=== PATIENT | female | born 1935 | race Caucasian/White ===

== ENCOUNTER 2022-01-31 06:31 | Inpatient (IN) | payer OTHER, MEDICARE ==
[2022-01-26 12:08] LABS: BASOPHILS % (AUTO) 0.1 % (0.0-2.0); EOSINOPHILS # (AUTO) 0.1 K/uL (0.0-0.4); EOSINOPHILS % (AUTO) 1.2 % (0.0-4.0); HEMOGLOBIN 13.5 g/dL (12.0-16.0); LYMPHOCYTES # (AUTO) 1.5 K/uL (1.0-5.5); LYMPHOCYTES % (AUTO) 19.7 % (20.5-51.5); MEAN CORPUSCULAR HEMOGLOBIN 31 pg (27-31); MEAN CORPUSCULAR HGB CONC 33 % (32-36); MEAN CORPUSCULAR VOLUME 94 fL (79.0-98.0); MONOCYTES # (AUTO) 0.7 K/uL (0.0-1.0); MONOCYTES % (AUTO) 9.4 % (1.7-9.3); NEUTROPHILS # (AUTO) 5.2 K/uL (1.8-7.7); NEUTROPHILS % (AUTO) 69.6 % (40.0-70.0); PLATELET COUNT (AUTO) 231 K/uL (130-430); RED BLOOD CELL COUNT(AUTO) 4.38 MIL/uL (4.2-6.2); RED CELL DISTRIBUTION WIDTH 13.1 % (9.0-15.0); WHITE BLOOD COUNT (AUTO) 7.4 K/uL (4.8-10.8)
[2022-01-26 12:28] LABS: ANION GAP 4 (5-15); CHLORIDE 104 mmol/L (98-107); CREATININE 1.05 mg/dL (0.55-1.30); GLUCOSE 99 mg/dL (70-99); POTASSIUM 5.3 mmol/L (3.5-5.1); UREA NITROGEN, BLOOD 26 mg/dL (8-21)
[2022-01-26 12:34] LABS: PROTHROMBIN TIME 9.7 SECS (9.5-12.5)
[2022-01-26 12:45] LABS: BILIRUBIN,URINE NEGATIVE (NEGATIVE); BLOOD, URINE NEGATIVE (NEGATIVE); CLARITY/URINE CLEAR (CLEAR); COLOR,URINE YELLOW (YELLOW); GLUCOSE,URINE NEGATIVE (NEGATIVE); KETONES,URINE NEGATIVE (NEGATIVE); LEUKOCYTE ESTERASE ,URINE 1+ (NEGATIVE); NITRITE, URINE NEGATIVE (NEGATIVE); PROTEIN URINE NEGATIVE (NEGATIVE); UROBILINOGEN,URINE 0.2 (0.2-1.0)
[2022-01-26 13:41] LABS: BACTERIA,URINE RARE /HPF (None Seen); MUCUS,URINE 1+ /LPF (None Seen); RBC,URINE 0-3 /HPF (0-3); WBC,URINE 0-3 /HPF (0-3)
[~2022-01-31] VITALS: Ht 167.6 cm; Wt 67.1 kg
[2022-02-06] MEDS ORDERED: GABAPENTIN 300 MG CAPSULE PO ONE (08:15)
[2022-02-06] MEDS ORDERED: CEFAZOLIN SODIUM IV ONE (08:15)
[2022-02-06] MEDS ORDERED: LIDOCAINE 1% 10 MG/ML, 20 ML MDV ID ONE (08:15)
[2022-02-06] MEDS ORDERED: NS IV ONE (08:15)
[2022-02-06] MEDS ORDERED: ACETAMINOPHEN 500 MG TABLET PO ONE (10:45)
[2022-02-06] MEDS ORDERED: oxyCODONE HCL 10 MG TAB.ER.12H PO ONE (11:00)
[2022-02-06] MEDS ORDERED: CELECOXIB 200 MG CAPSULE PO ONE (11:00)
[2022-02-07] MEDS ORDERED: CELECOXIB 200 MG CAPSULE PO ONE ×2 (06:30→11:00)
[2022-02-07] MEDS ORDERED: ACETAMINOPHEN 500 MG TABLET PO ONE ×2 (06:30→10:45)
[2022-02-07] MEDS ORDERED: CELECOXIB 200 MG CAPSULE ONE (07:14)
[2022-02-07] MEDS ORDERED: ACETAMINOPHEN 500 MG TABLET ONE (07:14)
[2022-02-07] MEDS ORDERED: GABAPENTIN 300 MG CAPSULE ONE (07:15)
[2022-02-07] MEDS ORDERED: HYDROmorphone 2 MG/ML VIAL IVP ONE (07:50)
[2022-02-07] MEDS ORDERED: LR 1,000 ML IV.SOLN IV ONE (07:50)
[2022-02-07] MEDS ORDERED: BUPIVACAINE /EPINEPHRINE/PF 0.25% 30 ML VIAL INJ ONE (07:50)
[2022-02-07] MEDS ORDERED: ePHEDrine sulfate 50 MG/ML VIAL IVP ONE (07:50)
[2022-02-07] MEDS ORDERED: DEXAMETHASONE SOD PHOSPHATE 4 MG/ML VIAL IVP ONE (07:50)
[2022-02-07] MEDS ORDERED: SEVOFLURANE 15 MIN GAS INH ONE (07:50)
[2022-02-07] MEDS ORDERED: WATER FOR IRRIGATION,STERILE 1,000 ML IRRIG.SOLN IR ONE (07:50)
[2022-02-07] MEDS ORDERED: NS 1000 ML IV.SOLN IV ONE (07:50)
[2022-02-07] MEDS ORDERED: METOCLOPRAMIDE HCL 10 MG/2 ML VIAL IVP ONE (07:50)
[2022-02-07] MEDS ORDERED: GLYCOPYRROLATE 0.2 MG/ML VIAL IJ ONE (07:50)
[2022-02-07] MEDS ORDERED: ONDANSETRON HCL 4 MG/2 ML VIAL IVP ONE (07:50)
[2022-02-07] MEDS ORDERED: NEOSTIGMINE METHYLSULFATE 1 MG/ML, 10 ML VIAL IVP ONE (07:50)
[2022-02-07] MEDS ORDERED: TRANEXAMIC ACID 1,000 MG/10 ML VIAL IV ONE (07:50)
[2022-02-07] MEDS ORDERED: ROCURONIUM BROMIDE 10 MG/ML (ZEMURON) IV ONE (07:50)
[2022-02-07] MEDS ORDERED: BUPIVACAINE /PF 0.25% 30 ML VIAL INJ ONE (07:50)
[2022-02-07] MEDS ORDERED: GABAPENTIN 300 MG CAPSULE PO ONE (09:00)
[2022-02-07] MEDS ORDERED: LIDOCAINE 1% 10 MG/ML, 20 ML MDV ID ONE (10:48)
[2022-02-07] MEDS ORDERED: oxyCODONE HCL 5 MG TABLET PO PRN ×2 (11:00)
[2022-02-07] MEDS ORDERED: traMADol HCL HCL 50 MG TABLET (ULTRAM) PO PRN (11:00)
[2022-02-07] MEDS ORDERED: CEFAZOLIN SODIUM IV ONE (11:00)
[2022-02-07] MEDS ORDERED: oxyCODONE HCL 10 MG TAB.ER.12H PO ONE (11:00)
[2022-02-07] MEDS ORDERED: LORATADINE 10 MG TABLET PO PRN (11:00)
[2022-02-07] MEDS ORDERED: HYDROmorphone 1 MG/ML INJ. CARTRIDGE IVP PRN ×3 (11:00)
[2022-02-07] MEDS ORDERED: NS IV ONE (11:00)
[2022-02-07] MEDS ORDERED: ONDANSETRON HCL 4 MG/2 ML VIAL IVP PRN ×2 (11:45→12:00)
[2022-02-07] MEDS ORDERED: DIPHENHYDRAMINE HCL 25 MG CAPSULE PO PRN (12:00)
[2022-02-07] MEDS ORDERED: NALOXONE HCL 0.4 MG/ML AMP (NARCAN) IVP PRN ×2 (12:00)
[2022-02-07] MEDS ORDERED: METOCLOPRAMIDE HCL 10 MG/2 ML VIAL IVP PRN (12:00)
[2022-02-07] MEDS ORDERED: BISACODYL 10 MG/SUPPOSITORY RC PRN (12:00)
[2022-02-07] MEDS ORDERED: LACTULOSE 20 GM/30 ML UDC PO PRN (12:00)
[2022-02-07] MEDS ORDERED: fentaNYL CITRATE/PF 100 MCG/2 ML AMP IVP ONE (12:00)
[2022-02-07] MEDS ORDERED: ACETYLCYSTEINE IV 0 MG in D5W 200 ML IV ONE (12:00)
[2022-02-07] MEDS ORDERED: ACET-73 PO (12:21)
[2022-02-07] MEDS ORDERED: LORA-790 PO (12:21)
[2022-02-07] MEDS ORDERED: CALC-808 PO (12:21)
[2022-02-07] MEDS ORDERED: CYAN50009 PO (12:21)
[2022-02-07] MEDS ORDERED: SIMV-343 PO (12:21)
[2022-02-07] MEDS ORDERED: MELO5CAP2 PO (12:21)
[2022-02-07] MEDS ORDERED: LISI-209 PO (12:21)
[2022-02-07 14:00] VITALS: BP_SYST 113
[2022-02-07] MEDS: ACETAMINOPHEN 500 MG TABLET PO SCH ×2 (15:08→22:00)
--- NOTE | 2022-02-07 15:08 | NUR ---
Discharge Planning: DCP faxed pt referral to [facility] [id number] for home health PT, DCP spoke to spouse and son patient has a FWW. Medicare will only issue one every 5 years. PCP is Cassidy You [phone]. DCP to follow up Addendum: 02/07/22 at 1650 by Gisela GUADALUPE [place] [phone] accepted patient, [facility] [phone] Desire check benefits and pt is eligible for a FWW. Addendum: 02/08/22 at 1414 by Gisela Smith DP Discharge Planning: DCP faxed DC summary and PT notes to [facility] [phone]
[2022-02-07] MEDS: KETOROLAC TROMETHAMINE 10 MG TABLET (TORADOL) PO SCH ×2 (15:19→22:00)
[2022-02-07 17:35] VITALS: BP_SYST 113
[2022-02-07] MEDS: ceFAZolin SODIUM 2 GM in D5W 50 ML IV SCH (19:00)
[2022-02-07] MEDS ORDERED: SENNOSIDES/DOCUSATE SODIUM 1 TAB TABLET(SENOKOT-S) PO SCH (21:00)
[2022-02-08 00:21] VITALS: BP_SYST 120
[2022-02-08] MEDS: ceFAZolin SODIUM 2 GM in D5W 50 ML IV SCH (03:56)
[2022-02-08] MEDS: ACETAMINOPHEN 500 MG TABLET PO SCH (05:43)
[2022-02-08] MEDS: KETOROLAC TROMETHAMINE 10 MG TABLET (TORADOL) PO SCH (05:43)
--- NOTE | 2022-02-08 06:00 | NUR ---
--PT REMAINS A/OX4. VS HAVE BEEN STABLE. IV I/P. PT VOIDING WELL VIA BEDPAN. PT DENIES PAIN. PT HAS BEEN MED WITH TORODOL AND TYLENOL. CALLED AND GAVE ORD FOR PTX WITH [facility]. PT ENDORSED TO DAYSHIFT RN IN STABLE COND. PT ENDORED TO DAYSHIFT RN IN STABLE COND. IV IS I/P VIA LEFT ARM. GEN. COND. HAS BEEN STABLE. RIGHT HIP DRSG HAS BEEN STABLE. SUSIE RN
[2022-02-08 07:00] VITALS: BP_SYST 117
[2022-02-08] MEDS ORDERED: ASA81 PO (07:31)
[2022-02-08 07:45] LABS: ALANINE AMINOTRANSFERASE 17 U/L (12-78); ALBUMIN 2.4 g/dL (3.4-4.8); ANION GAP 8 (5-15); ASPARTATE AMINOTRANSFERASE 26 U/L (10-37); CALCIUM 8.3 mg/dL (8.4-11.0); CHLORIDE 106 mmol/L (98-107); CREATININE 1.15 mg/dL (0.55-1.30); GLUCOSE 128 mg/dL (70-99); POTASSIUM 4.2 mmol/L (3.5-5.1); TOTAL BILIRUBIN 0.3 mg/dL (0.0-1.0); UREA NITROGEN, BLOOD 23 mg/dL (8-21)
[2022-02-08 07:49] LABS: HEMATOCRIT 27.4 % (36-48); LYMPHOCYTES # (AUTO) 1.1 K/uL (1.0-5.5); LYMPHOCYTES % (AUTO) 5.7 % (20.5-51.5); MEAN CORPUSCULAR VOLUME 93 fL (79.0-98.0); MONOCYTES # (AUTO) 1.5 K/uL (0.0-1.0); MONOCYTES % (AUTO) 7.9 % (1.7-9.3); NEUTROPHILS # (AUTO) 16.9 K/uL (1.8-7.7); NEUTROPHILS % (AUTO) 86.4 % (40.0-70.0); PLATELET COUNT (AUTO) 187 K/uL (130-430); RED BLOOD CELL COUNT(AUTO) 2.95 MIL/uL (4.2-6.2); RED CELL DISTRIBUTION WIDTH 12.9 % (9.0-15.0); WHITE BLOOD COUNT (AUTO) 19.6 K/uL (4.8-10.8)
[2022-02-08 08:00] VITALS: BP_SYST 117
[2022-02-08] MEDS ORDERED: ASPIRIN 81 MG TAB.CHEW PO SCH (09:00)
[2022-02-08] MEDS ORDERED: DECADRON 4 MG TABLET PO SCH (09:00)
[2022-02-08] MEDS ORDERED: CELECOXIB 200 MG CAPSULE PO SCH (11:00)
[2022-02-08 11:58] VITALS: BP_SYST 134
[2022-02-08 13:41] VITALS: BP_SYST 134
--- NOTE | 2022-02-08 14:13 | NUR ---
PATIENT DC PAPER PRINTED AND SIGNED BY THE PATIENT. PAPER EXPLAINED TO THE PATIENT AND HER , EMILIE. ALL BELONGINGS TAKEN WITH THE PATIENT. PATIENT GOING HOME WITH THE WHEELCHAIR ASSISTED BY THE PATIENT.
== END 2022-02-08 14:25 | disposition home health service (06) | DRG 470 ==
LOC: SMU 02-07 05:26
PROVIDERS: ADMIT Student in an Organized Health Care Education/Training Program; ATTEND Student in an Organized Health Care Education/Training Program
PROC: 0SR9039 Replacement of Right Hip Joint with Ceramic Synthetic Substitute, Cemented, Open Approach (ICD-10-PCS; principal; 2022-02-07 07:58)
DX: M16.11 Unilateral primary osteoarthritis, right hip (principal); E44.1 Mild protein-calorie malnutrition; Z20.822 Contact with and (suspected) exposure to COVID-19
CPT/HCPCS: 36415; 71046-TC; 72170-TC; 76001; 80048; 80053; 81000; 85025; 85610-TC; 85730-TC; 87081; 88304; 88311; 93005; 96379; 97116-GP; 97530-GP; J0690; J1100; J1170; J2405; J2710; J2765; J3490; J7030; J7060; J7120; J8540; U0003